=== PATIENT | female | born 1950 | race Caucasian/White ===

== ENCOUNTER → 2017-11-17 | Outpatient (CLI) | payer OTHER ==
[~2017-11-17] MED LIST: ACET-458 PO; ACETAMINOPHEN PO; AMLO5TAB2 PO; ASPI-621 PO; BISA5TAB5 PO; CHOL100014 PO; CHOL500015 PO; CYAN100072 PO; DIAZ5TAB4 PO; DOCU100T6 PO; HYDR-3240 PO; HYDR12.58 PO; IRBE1TAB37 PO; LOSA25TA5 PO; MELO15TA24 PO; OXYC10TA6 PO; PHEN37.53 PO; PROM25TA10 PO; TRAM50TA2 PO
[2017-11-17 13:19] LABS: MICROSCOPIC AUTO
[2017-11-17 13:23] LABS: CULTURE INDICATED? YES
== END | disposition home or self-care (01) ==
LOC: STAR 11:50
PROVIDERS: ATTEND Orthopaedic Surgery
DX: Z01.818 Encounter for other preprocedural examination (principal); M17.12 Unilateral primary osteoarthritis, left knee
CPT/HCPCS: 81001; 87081; 87086; 87147; 93005

== ENCOUNTER 2017-11-30 06:45 | Inpatient (IN) | payer OTHER, MEDICARE ==
[2017-11-17 13:01] VITALS: BP 131/88
[~2017-11-30] VITALS: Ht 154.9 cm; Wt 73.4 kg
[2017-11-30] MEDS ORDERED: LACTATED RINGERS 1,000 ML IV SCH (08:26)
[2017-11-30] MEDS ORDERED: LIDOCAINE-MPF 1%, 2ML INFIL ONE (08:30)
[2017-11-30] MEDS ORDERED: SODIUM CHLORIDE 0.9% 100 ML ONE (08:43)
[2017-11-30] MEDS ORDERED: KETOROLAC 60 MG/2 ML ONE (08:43)
[2017-11-30] MEDS ORDERED: TRANEXAMIC ACID 100 MG/ML, 10ML ONE (08:43)
[2017-11-30] MEDS ORDERED: EPINEPHRINE 1 MG/ML, 1ML ONE (08:43)
[2017-11-30] MEDS ORDERED: ROPivacaine/PF 0.2%, 10 ML ONE (08:44)
[2017-11-30] MEDS ORDERED: FENTANYL PF 100 MCG/2ML ONE (08:52)
[2017-11-30] MEDS ORDERED: MIDAZOLAM 1 MG/ML, 2ML ONE (08:52)
[2017-11-30] MEDS ORDERED: PROPOFOL 50 ML ONE (08:54)
[2017-11-30] MEDS ORDERED: ACETAMINOPHEN 500 MG TABLET ONE (09:18)
[2017-11-30] MEDS ORDERED: OXYcodone IR 5MG TABLET ONE (09:19)
[2017-11-30] MEDS ORDERED: GABAPENTIN 300 MG CAPSULE ONE (09:19)
[2017-11-30] MEDS ORDERED: GABAPENTIN 300 MG CAPSULE PO ONE (09:30)
[2017-11-30] MEDS ORDERED: ACETAMINOPHEN 500 MG TABLET PO ONE (09:30)
[2017-11-30] MEDS ORDERED: OXYcodone IR 5MG TABLET PO ONE (09:30)
[2017-11-30] MEDS ORDERED: PHENYLEPHRINE 10 MG/ML ONE (09:50)
[2017-11-30] MEDS ORDERED: ONDANSETRON 2MG/ML, 2ML ONE (09:50)
[2017-11-30] MEDS ORDERED: CEFAZOLIN 1,000 MG ONE (09:50)
[2017-11-30] MEDS ORDERED: DEXAMETHASONE 4 MG/ML, 1ML ONE (09:50)
[2017-11-30] MEDS ORDERED: PROMETHAZINE 25 MG/ML, 1ML IV PRN (10:30)
[2017-11-30] MEDS ORDERED: FENTANYL PF 100 MCG/2ML IV PRN (10:30)
[2017-11-30] MEDS ORDERED: ONDANSETRON 2MG/ML, 2ML IVPush PRN (10:30)
[2017-11-30] MEDS ORDERED: morphine SULFATE 10 MG/ML, 1ML IV PRN (10:30)
[2017-11-30] MEDS ORDERED: OXYcodone 5 MG/5 ML ORAL.SOL UDC PO PRN (10:30)
[2017-11-30] MEDS ORDERED: HYDROcodone/APAP 7.5-325MG/15ML UDC PO PRN (10:30)
[2017-11-30] MEDS ORDERED: LORazepam 1MG TABLET PO PRN (12:00)
[2017-11-30] MEDS ORDERED: PROMETHAZINE 12.5 MG SUPP PR PRN (12:00)
[2017-11-30] MEDS ORDERED: MAGNESIUM HYDROXIDE 8%, 30ML UDC PO PRN (12:00)
[2017-11-30] MEDS ORDERED: ONDANSETRON 4 MG TABLET PO PRN (12:00)
[2017-11-30] MEDS ORDERED: ALUMINUM/MAG/SIMETHICONE 30 ML UDC PO PRN (12:00)
[2017-11-30] MEDS ORDERED: PROMETHAZINE 25 MG/ML, 1ML IM PRN (12:00)
[2017-11-30] MEDS ORDERED: SENNA/DOCUSATE TABLET PO PRN (12:00)
[2017-11-30] MEDS ORDERED: HYDROmorphone 1 MG/ML, 1ML IV PRN (12:00)
[2017-11-30] MEDS ORDERED: TRANEXAMIC ACID 1,000 MG in SODIUM CHLORIDE 0.9% 100 ML IVPB ONE (12:00)
[2017-11-30] MEDS ORDERED: ZOLPIDEM 5MG TABLET PO PRN (12:00)
[2017-11-30] MEDS ORDERED: BISACODYL 10 MG SUPP PR PRN (12:00)
[2017-11-30] MEDS: TAMSULOSIN 0.4 MG CAP.ER.24H PO SCH (12:00)
[2017-11-30] MEDS ORDERED: ONDANSETRON 2MG/ML, 2ML IV PRN (12:00)
[2017-11-30] MEDS ORDERED: DIPHENHYDRAMINE 25 MG CAPSULE PO PRN (12:00)
[2017-11-30] MEDS ORDERED: DIAZEPAM 5 MG TABLET PO PRN (12:00)
[2017-11-30] MEDS ORDERED: OXYcodone IR 5MG TABLET PO PRN (12:00)
[2017-11-30 14:05] VITALS: BP 103/67
[2017-11-30] MEDS: D5%-0.45% NACL 1,000 ML IV SCH (17:41)
[2017-11-30] MEDS: ACETAMINOPHEN 650 MG/20.3 ML UDC PO SCH (17:42)
[2017-11-30] MEDS: ASPIRIN 81 MG TABLET EC PO SCH (17:42)
[2017-11-30 19:40] VITALS: BP 99/61
[2017-11-30] MEDS: CEFAZOLIN PMX 1GM/50ML 50 ML IVPB SCH (19:49)
[2017-11-30] MEDS: DOCUSATE 100 MG CAPSULE PO SCH (19:50)
[2017-11-30 23:10] VITALS: BP 108/66
[2017-12-01] MEDS: ACETAMINOPHEN 650 MG/20.3 ML UDC PO SCH ×2 (01:24→08:21)
[2017-12-01] MEDS: D5%-0.45% NACL 1,000 ML IV SCH ×2 (03:00→13:00)
[2017-12-01] MEDS: CEFAZOLIN PMX 1GM/50ML 50 ML IVPB SCH (03:40)
[2017-12-01 03:57] VITALS: BP 97/60
[2017-12-01] MEDS: ASPIRIN 81 MG TABLET EC PO SCH (05:05)
[2017-12-01] MEDS ORDERED: DEXAMETHASONE 4 MG/ML, 1ML IVPush SCH (06:00)
[2017-12-01] MEDS: TAMSULOSIN 0.4 MG CAP.ER.24H PO SCH (08:21)
[2017-12-01] MEDS: DOCUSATE 100 MG CAPSULE PO SCH (08:21)
[2017-12-01 08:47] VITALS: BP 121/82
[2017-12-01] MEDS ORDERED: LOSARTAN 25MG TABLET PO SCH (09:00)
[2017-12-01] MEDS ORDERED: HYDROCHLOROTHIAZIDE 12.5 MG CAPSULE PO SCH (09:00)
[2017-12-01] MEDS ORDERED: AMLODIPINE 5 MG TABLET PO SCH (09:00)
[2017-12-01] MEDS ORDERED: PHENTERMINE 37.5 MG HOMEMEDPO SCH (09:00)
[2017-12-01] MEDS ORDERED: HYDROcodone/APAP 5/325 TABLET PO PRN (11:00)
[2017-12-01] MEDS ORDERED: KETOROLAC 30 MG/1 ML IV SCH (12:00)
== END 2017-12-01 13:17 | disposition home or self-care (01) | DRG 470 ==
LOC: OUT 06:45 → ORIP 11:46 → 4NOR 14:01 → DCLOUNGE 12-01 13:06
PROVIDERS: ADMIT Orthopaedic Surgery; ATTEND Orthopaedic Surgery
PROC: 0SRD0J9 Replacement of Left Knee Joint with Synthetic Substitute, Cemented, Open Approach (ICD-10-PCS; principal; 2017-11-30 09:45)
DX: M17.12 Unilateral primary osteoarthritis, left knee (principal); I10 Essential (primary) hypertension; Z88.5 Allergy status to narcotic agent
CPT/HCPCS: 36415; 85018; C1713; J0171; J0690; J1100; J1885; J2250; J2405; J2704; J2795; J3010; J3490; C1776; J2370; J7120

== ENCOUNTER → 2018-10-27 | Outpatient (CLI) | payer MEDICARE ==
[~2018-10-27] MED LIST changes: +AMLO-150 PO; -AMLO5TAB2 PO; -ASPI-621 PO; +ASPI81TA45 PO; -HYDR12.58 PO; +HYDROCHLOROTH12.5 MG PO; +LOSA25TA25 PO; -LOSA25TA5 PO
== END | disposition home or self-care (01) ==
LOC: CFH 10:02
DX: Z12.31 Encounter for screening mammogram for malignant neoplasm of breast (principal); Z13.820 Encounter for screening for osteoporosis; N95.9 Unspecified menopausal and perimenopausal disorder; M85.88 Other specified disorders of bone density and structure, other site; Z85.3 Personal history of malignant neoplasm of breast
CPT/HCPCS: 77063; 77080; 77067

== ENCOUNTER → 2020-02-19 | Outpatient (CLI) | payer MEDICARE | END | disposition home or self-care (01) | LOC: RAD 17:19 | PROVIDERS: ATTEND Physician Assistant Surgical | DX: M51.16 Intervertebral disc disorders with radiculopathy, lumbar region (principal); N28.1 Cyst of kidney, acquired | CPT/HCPCS: 72114; 72148 ==